=== PATIENT | male | born 1985 | race Caucasian/White ===

== ENCOUNTER → 2017-11-04 15:42 | Outpatient (CLI) | payer BC, SELFPAY | PROVIDERS: Family Provider Family Medicine; PCP Family Medicine; Visit Provider Family Medicine | DX: Z53.9 Procedure and treatment not carried out, unspecified reason (principal) | CPT/HCPCS: 87081 ==

== ENCOUNTER → 2017-11-05 14:08 | Outpatient (CLI) | payer BC, SELFPAY ==
[2017-11-05 18:57] LABS: M R Staph aureus DNA By PCR Negative (Negative); Probe Check PASS; Specimen Processing Control PASS
== END ==
PROVIDERS: Family Provider Family Medicine; PCP Family Medicine; Visit Provider Family Medicine
DX: Z20.818 Contact with and (suspected) exposure to other bacterial communicable diseases (principal)
CPT/HCPCS: 87641

== ENCOUNTER → 2018-02-14 10:03 | Outpatient (CLI) | payer BC, SELFPAY ==
--- NOTE | 2018-02-14 10:09 | RAD_ITS ---
STUDY: X-RAY CHEST REASON FOR EXAM: Male, 32 years old. Chest pain TECHNIQUE: Frontal and lateral views of the chest. COMPARISON: None. FINDINGS: The lungs are clear and expanded. There is no demonstrated pleural abnormality. Normal size heart. Normal mediastinum and sathya. Normal visualized pulmonary arteries. Normal visualized aortic arch and descending thoracic aorta. Normal visualized thoracic spine. Normal visualized ribs, clavicles, and shoulders. There is no demonstrated abnormality of the visualized soft tissue structures of the upper abdomen. RAD/Chest PA and Lateral IMPRESSION: Normal x-ray examination of the chest. Electronically Signed: Peter Mejia MD at 0:03 EST , Service support ,
[2018-02-14 12:25] LABS: Absolute Lymphocyte Count 2.15 X10^3/ul (0.83-4.51); Absolute Neutrophil Count 3.7 X10^3/uL (2.0-7.7); Basophil# 0.02 X10^3/uL; Basophil% 0.3 % (0-1); Eosinophil# 0.12 X10^3/uL; Eosinophils% 1.8 % (0-5); Hematocrit 46.4 % (40-54); Hemoglobin 15.9 g/dl (13.0-16.5); Lymphocyte # 2.15 X10^3/ul (4.0); Lymphocyte % 31.8 % (19-41); Mean Corp Hgb Conc 34.3 g/gl (32-36); Mean Corpuscular Hgb 30.6 pg (27.0-32.0); Mean Corpuscular Volume 89.4 fL (80-94); Mean Platelet Vol. 10.1 fl (6.2-12.0); Monocyte# 0.73 X10^3/uL; Monocyte% 10.8 % (0-10); Neutrophil # 3.72 X10^3/uL (2.7-7.7); Platelet Count 286 K/mm3 (150-450); RBC Distribution Width CV 12.1 % (11.6-14.6); RBC Distribution Width SD 39.5 fl (35.1-43.9); Red Blood Count 5.19 M/mm3 (4.6-6.2); White Blood Count 6.8 K/mm3 (4.4-11.0)
[2018-02-14 12:31] LABS: POSITIVE COUNT NO; POSITIVE DIFFERENTIAL NO; POSITIVE MORPHOLOGY NO
[2018-02-14 13:07] LABS: D-Dimer Quantitative (DVT/PE) < 0.27 FEU/ug/m (0.27-0.49)
== END ==
PROVIDERS: Family Provider Family Medicine; PCP Family Medicine; Referring Provider Family Medicine; Visit Provider Family Medicine
DX: R07.9 Chest pain, unspecified (principal)
CPT/HCPCS: 36415; 71046; 85025; 85379

== ENCOUNTER → 2018-03-06 15:34 | Outpatient (CLI) | payer BC, SELFPAY ==
[2016-11-16 17:30] VITALS: BMI 25.8
[2018-03-06 17:48] LABS: Color, Urine Yellow (Yellow); Glucose, Dipstick Normal (Normal); Ketone-Dipstick Negative (Negative); Leukocyte Esterase-Dipstick Negative /ul (Negative); Nitrite-Dipstick Negative (Negative); Occult Blood-Urine Negative /ul (Negative); Protein-Dipstick Negative (Negative); Urine Bilirubin Dipstick Negative (Negative); Urine Clarity Clear (Clear); Urine Urobilinogen Normal (Normal)
[2018-03-06 17:58] LABS: ALB/GLOB Ratio 1.2 RATIO (0.9-2.4); AST(SGOT) 34 U/L (15-37); Alanine Aminotransfer ALT/SGPT 61 U/L (16-61); Albumin, Serum 4.1 g/dL (3.2-5.0); Alkaline Phosphatase 96 U/L (45-117); Anion Gap 8 (5-15); BUN 16 mg/dL (7-18); Calcium,Total 8.8 mg/dL (8.5-10.1); Chloride 103 mmol/L (98-107); EST Glomerular Filtration Rate 93 mL/min (>60); Est Glom Filt Rate - Afr Amer 113 mL/min (>60); Globulin 3.3 g/dL (2.2-4.2); Glucose 83 mg/dL (74-106); Potassium 3.9 mmol/L (3.5-5.1); Protein, Total 7.4 g/dL (6.4-8.2); Sodium Level 140 mmol/L (136-145)
--- OUTSIDE RECORDS SUMMARY | 2018-05-01 21:59 | XMS RPT_ITS ---
:1985 Author Organization [facility] Care Team Providers Name Role Phone Jose L Zaid Attending Unavailable Zaid Domingo Primary Care Unavailable Zaid Domingo Attending Unavailable Zaid Domingo Primary Care Unavailable Zaid Domingo Attending Unavailable Zaid Domingo Referring Unavailable Zaid Domingo Primary Care Unavailable Patricia Garcia Attending Unavailable Patricia Garcia Referring Unavailable Zaid Domingo Primary Care Unavailable PROBLEMS PROBLEMS DATE TYPE CONDITION / CODE ATTENDING STATUS SOURCE 02/14/2018 Unknown R07.9 - Chest Zaid Domingo Active [facility] pain, unspecified Community / R07.9(ICD-10) Hospital Repository 11/05/2017 Unknown Z20.818 - Contact Jose L Zaid Active [place] with and Community (suspected) Hospital exposure to other Repository bacterial communicable diseases / Z20.818(ICD-10) PROCEDURES PROCEDURES No Procedure Records FoundRESULTS RESULTS URINALYSIS, ROUTINE Collected: 03/06/2018 Status: F Source: [place] (DIPSTICK) 3:39 PM [facility] REPOSITORY Order Comment: How was Urine Obtained? CLEAN CATCH TYPE CODE TESTS RESULT OUT OF RANGE REFERENCE UNITS LAB L400.3000 Yellow COLOR Normal Yellow LAB L400.3050 Clear Normal CLARITY Clear LAB L400.3200 Normal mg/dl Normal GLUCOSE, UR Normal LAB L400.3300 Negative mg/dL Normal BILIRUBIN URINE Negative LAB L400.3400 Negative mg/dl Normal KETONE UR Negative LAB L400.3465 1.002-1.030 Normal SP.GR. DIPSTX 1.020 LAB L400.3550 5.0 - 8.0 pH UR Normal 6.0 LAB L400.3600 Negative mg/dl PROT Normal DIPSTX Negative LAB L400.3700 Normal mg/dl Normal UROBILI Normal LAB L400.3750 Negative Normal NITRITE UR Negative LAB L400.3780 Negative /ul Normal OCCULT BLOOD-UR Negative LAB L400.3800 Negative /ul LEUK Normal ESTERASE Negative Performed By: #### L400.2010 #### [facility] [address] [place], [place], [address] COMPREHENSIVE METABOLIC Collected: 03/06/2018 Status: F Source: [place] PROFIL 3:39 PM [facility] REPOSITORY TYPE CODE TESTS RESULT OUT OF RANGE REFERENCE UNITS LAB L501.0100 74-106 mg/dL Normal GLU 83 Result Comment: Please note revised GLUCOSE reference range effective 2017. LAB L501.1000 7-18 mg/dL Normal BUN 16 LAB L501.1100 0.70-1.30 mg/dL Normal CREAT,SERUM 1.00 Result Comment: The validity of the calculated GFR AND GFRAA in patients over 70 years has not been determined. Clinical correlation is essential. LAB L501.1110 >60 mL/min Normal EST GFR 93 Result Comment: Non- GFR Calc LAB L501.1115 >60 mL/min Normal EST GFR - AA 113 Result Comment: GFR Calc LAB L501.1300 10-20 RATIO Normal BUN/CRE 16.0 LAB L501.1500 6.4-8.2 g/dL T Normal PROT 7.4 LAB L501.1800 3.2-5.0 g/dL Normal ALB 4.1 LAB L501.1950 2.2-4.2 g/dL Normal GLOB 3.3 LAB L501.2000 0.9-2.4 RATIO Normal A/G 1.2 LAB L501.2200 8.5-10.1 mg/dL CA Normal 8.8 LAB L501.4100 15-37 U/L Normal AST 34 LAB L501.4305 45-117 U/L Normal ALK P 96 LAB L501.4405 16-61 U/L Normal ALT 61 LAB L501.4600 0.20-1.00 mg/dL T Normal BILI 0.30 LAB L501.5300 136-145 mmol/L NA Normal 140 LAB L501.5600 3.5-5.1 mmol/L K Normal 3.9 LAB L501.5900 98-107 mmol/L CL Normal 103 LAB L501.6100 21.0-32.0 mmol/L Normal CO2 29.0 LAB L501.6200 5-15 Normal GAP 8 Performed By: #### L500.4050 #### [facility] [address] [place], [address] CBC W/DIFF, AUTOMATED Collected: 02/14/2018 Status: F Source: [place] 10:10 AM [facility] REPOSITORY TYPE CODE TESTS RESULT OUT OF RANGE REFERENCE UNITS LAB L100.1000 4.4-11.0 K/mm3 Normal WBC 6.8 LAB L100.1200 4.6-6.2 M/mm3 Normal RBC 5.19 LAB L100.1300 13.0-16.5 g/dl Normal HGB 15.9 LAB L100.1400 40-54 % Normal HCT 46.4 LAB L100.1500 80-94 fL Normal MCV 89.4 LAB L100.1600 27.0-32.0 pg Normal MCH 30.6 LAB L100.1700 32-36 g/gl Normal MCHC 34.3 LAB L100.1810 11.6-14.6 % Normal RDW CV 12.1 LAB L100.1820 35.1-43.9 fl Normal RDW SD 39.5 LAB L100.1900 150-450 K/mm3 Normal PLT 286 LAB L100.2000 6.2-12.0 fl Normal MPV 10.1 LAB L100.2100 47-70 % Normal NEUT% 55.0 LAB L100.2200 19-41 % Normal LY% 31.8 LAB L100.2300 0-10 % High MONO% 10.8 LAB L100.2400 0-5 % Normal EO% 1.8 LAB L100.2500 0-1 % Normal BASO% 0.3 LAB L100.2550 0.0-0.9 % Normal IM GRAN % 0.300 Result Comment: IG% - Immature Granulocytes (promyelocytes, myelocytes and metamyelocytes) > 1% indicates that a LEFT SHIFT is Present. LAB L100.2620 2.0-7.7 X10 3/uL Normal Absolute Neut 3.7 LAB L100.2720 0.83-4.51 X10 3/ul Normal Absolute Lymph 2.15 Performed By: #### L100.0100 #### [facility] [address] [facility] [place], [place], [address] D-DIMER QUANTITATIVE Collected: 02/14/2018 Status: F Source: [place] (DVT/PE) 10:10 AM [facility] REPOSITORY TYPE CODE TESTS RESULT OUT OF RANGE REFERENCE UNITS LAB L300.8000 0.27-0.49 FEU/ug/m Low D-DIMER < 0.27 QUANT Result Comment: NORMAL D-Dimer level (<0.50) indicates no DVT or PE. Performed By: #### L300.8000 #### [facility] [address] [place], [address] CHEST PA AND LATERAL Observed: 02/14/2018 Status: F Source: [place] 10:09 AM [facility] REPOSITORY [facility] [address] [place] [address] Chest PA and Lateral MR#: [id number] Acct: [id number] Name: DAROÍ TRACY Rep #: [id number] : 1985 M 32 From: Peter Mejia MD PCP: Zaid Domingo DO Status: REG CLI Study: Chest PA and Lateral Date of Exam: 02/14/18 Exam# [id number] Ordering Dr: Zaid Domingo DO STUDY: X-RAY CHEST REASON FOR EXAM: Male, 32 years old. Chest pain TECHNIQUE: Frontal and lateral views of the chest. COMPARISON: None. FINDINGS: The lungs are clear and expanded. There is no demonstrated pleural abnormality. Normal size heart. Normal mediastinum and sathya. Normal visualized pulmonary arteries. Normal visualized aortic arch and descending thoracic aorta. Normal visualized thoracic spine. Normal visualized ribs, clavicles, and shoulders. There is no demonstrated abnormality of the visualized soft tissue structures of the upper abdomen. RAD/Chest PA and Lateral IMPRESSION: Normal x-ray examination of the chest. Electronically Signed: Peter Mejia MD at 0:03 EST , Service support , CC: Zaid Domingo DO Database Administration Manager: Signed Flores Haridng [employer] Collected: 11/05/2017 Status: F Source: [place] DNA BY PCR 8:00 AM [facility] REPOSITORY Order Comment: PT. COLLECTED SAMPLE AT HOME AT 0800 Source: NASAL SWAB TYPE CODE TESTS RESULT OUT OF RANGE REFERENCE UNITS LAB L8200.1100 Negative Normal MRSA Negative RESULT Performed By: #### L8200.1000 #### [facility] [place], [address] ALLERGIES ALLERGIES DATE TYPE / CODE NAME / CODE REACTION SEVERITY SOURCE 11/16/2016 Drug codeine/F006 Vomiting Unknown [facility] Allergy/4160 514424([place] [address](SNOMED M) Repository CT) 11/16/2016 Drug acetaminophe Vomiting Unknown [place] [facility] Allergy/4160 n/[id number] [place] [address](SNOMED (RXNORM) Repository CT) 11/16/2016 Drug naproxen/F00 Other Unknown [facility] Allergy/4160 [id number]([place] [address](SNOMED RM) Repository CT) ENCOUNTERS ENCOUNTERS ADMIT/DISCHARGE ACCOUNT ADMITTING ENCOUNTER LOCATION SOURCE NUMBER CLASS 03/06/2018 [id number] [facility] [place] [facility] ing:MTLAB Repository 02/14/2018 [id number] [facility] [place] [facility] ing:MTLAB Repository 11/05/2017 [id number] Amb[facility] [place] [facility] ing:BFHLAB Repository 11/04/2017 [id number] Ambulatory [facility] [place] [facility] ing:BFHLAB Repository PAYERS PAYERS ENCOUNTER GUARANTOR PAYER SUBSCRIBER SOURCE 03/06/2018 DARÍO Harding Primary RICHA A [facility] [id number] Insurance:ANTHEMPolic GRESSERDOB: Community LIBERTY y [place]: [id number] [id number] Repository [address]Ozu: (330) Date:3556-16-19EL [phone] () [address] [place] [address] [place] [address]HH: 03/06/2018 Secondary NOT GIVENUNK [facility] Insurance:SELF PAY [facility] Number: Effective Repository Date:2018-03-06 02/14/2018 Darío Harding Primary RICHA A [facility] [id number] Insurance:ANTHEMPolic GRESSERDOB: Community [place]: [id number] [id number] Repository [address]Gzi: (330) Date:2785-11-18LP [phone] () [id number] [address]QP: 02/14/2018 Secondary NOT GIVENUNK [facility] Insurance:SELF PAY [facility] Number: Effective Repository Date:2018-02-14 11/05/2017 Darío Harding Primary RICHA A [facility] [id number] Insurance:ANTHEMPolic GRESSERUNK [facility] Number: [place], [place] [id number] Repository [address]Nwn: (330) Date:6441-49-84YJ [phone] () [id number], [place] [address]GD: 11/05/2017 Secondary NOT GIVENUNK [facility] Insurance:SELF PAY [facility] Effective Repository Date:2017-11-05 11/04/2017 Darío Harding Primary RICHA A [facility] [id number] Insurance:ANTHEMPolic YANCI [facility] [place] Number: [place], [place] [id number] Repository 10456Pst: 330) Date:6359-23-02HW [phone] () [id number], [place] [address]OS: 11/04/2017 Secondary NOT GIVENUNK [facility] Insurance:SELF PAY [facility] Number: Effective Repository Date:2017-11-04
== END ==
PROVIDERS: Family Provider Family Medicine; PCP Family Medicine; Referring Provider Ophthalmology; Visit Provider Ophthalmology
DX: H35.89 Other specified retinal disorders (principal)
CPT/HCPCS: 36415; 80053; 81002

== ENCOUNTER → 2018-10-27 | Outpatient (CLI) | payer BC, SELFPAY ==
[2018-10-27 15:43] LABS: Erythrocyte Sedimentation Rate 7 mm/hr (0-15)
[2018-10-27 16:05] LABS: CRP < 2.90 mg/L (0.0-3.0); T4 Free Direct 1.31 ng/dL (0.76-1.46); Thyroid Stim Hormone (TSH) 1.06 uIU/mL (0.358-3.74)
== END | disposition home or self-care (01) ==
LOC: BFHLAB 11:57
PROVIDERS: Family Provider Family Medicine; PCP Family Medicine; Visit Provider Family Medicine
DX: R10.9 Unspecified abdominal pain (principal); R25.1 Tremor, unspecified; F41.9 Anxiety disorder, unspecified
CPT/HCPCS: 36415; 84439; 84443; 85652; 86140

== ENCOUNTER → 2019-05-08 | Outpatient (CLI) | payer BC, SELFPAY ==
[2019-03-13 12:46] VITALS: BMI 25.8
--- NOTE | 2019-05-08 07:04 | ECHOD_ITS ---
Reason For Study: Chest Pain, Murmur Procedure This was a 2D Doppler, Color Flow transthoracic echocardiogram. Patient had a hard time maintaining steady breathing due to left shoulder pain. Exam performed in department. Left Ventricle Normal LV size. Left ventricular systolic function is normal. The estimated ejection fraction is 65 %. No evidence for diastolic dysfunction. No regional wall motion abnormalities noted. Right Ventricle Normal RV size. Normal systolic function. Atria Normal left atrium. Normal right atrium. No doppler evidence for ASD. Mitral Valve There is no mitral annular calcification. Mild mitral valve prolapse. Trivial mitral valve insufficiency. Tricuspid Valve Normal tricuspid valve. Trivial tricuspid valve insufficiency. Aortic Valve Trisinus/trileaflet aortic valve. Normal aortic valve. Pulmonic Valve The pulmonic valve is not well visualized. Trivial pulmonic valve insufficiency. Great Vessels Normal sized aortic root. Pericardium/Pleural No pericardial effusion. MMode/2D Measurements & Calculations LVIDd: 4.6 cm IVSd: 0.84 cm Ao root diam: 3.2 cm LVIDs: 3.0 cm LVPWd: 0.71 cm LA dimension: 2.9 cm FS: 33.3 % LAV(MOD-bp): 29.1 ml LA A4 area: 13.4 cm2 RA A4 area: 11.7 cm2 LAV(MOD-bp) Indexed: 15.6 ml/m2 LAV(MOD-sp2): 23.1 ml LAV(MOD-sp4): 32.9 ml Time Measurements MV dec time: 0.20 sec Doppler Measurements & Calculations MV E max josé: 65.2 cm/sec Lat Peak E' José: 11.0 cm/sec Med Peak E' José: 10.3 cm/sec MV A max josé: 51.2 cm/sec E/E' lat: 5.9 E/E' med: 6.3 MV E/A: 1.3 MV V2 max: 70.1 cm/sec MV P1/2t max josé: 70.1 cm/sec Ao V2 max: 104.8 cm/sec MV max P.0 mmHg MV P1/2t: 64.0 msec Ao max P.4 mmHg MV V2 mean: 40.1 cm/sec MV dec slope: 320.6 cm/sec2 MV mean P.74 mmHg MVA(P1/2t): 3.4 cm2 MV V2 VTI: 20.0 cm LV V1 max: 85.4 cm/sec PA V2 max: 102.1 cm/sec LV V1 max P.9 mmHg Interpretation Summary Left ventricular systolic function is normal. The estimated ejection fraction is 65 %. Mild mitral valve prolapse. Trivial mitral valve insufficiency. Trivial tricuspid valve insufficiency. Trivial pulmonic valve insufficiency. No evidence for diastolic dysfunction. Ordering Physician: Zaid Domingo Referring Physician: Zaid Domingo Performed By: Brett Simpson RCS
--- NOTE | 2019-05-08 11:36 | PFT ---
INTRODUCTION: The patient is a 33-year-old male that presents for pulmonary function studies secondary to a diagnosis of chronic cough. Respiratory therapy reports good patient effort. Bronchodilators were used during testing. INTERPRETATION: Forced expiration spirometry demonstrates no evidence of a large airways obstructive ventilatory defect. There was no significant response to aerosolized bronchodilators, based upon strict ATS criteria. Spirograms are of good quality and plateau normally. The respiratory flow volume loop appears normal. Body plethysmography was performed and reveals lung volumes to be within normal limits. Diffusing capacity by single breath CO is also within normal limits as well. IMPRESSION: Normal pulmonary function studies.
== END | disposition home or self-care (01) ==
PROVIDERS: PCP Family Medicine; Referring Provider Family Medicine; Visit Provider Family Medicine
DX: R07.9 Chest pain, unspecified (principal); R05 Cough; R01.1 Cardiac murmur, unspecified
CPT/HCPCS: 93306; 94060; 94726; 94729

== ENCOUNTER → 2019-09-11 | Outpatient (CLI) | payer BC, SELFPAY ==
[2019-03-13 12:46] VITALS: BMI 25.8
--- NOTE | 2019-09-10 08:34 | EKG12_ITS ---
Test Reason : PREOP Blood Pressure : / mmHG Vent. Rate : 062 BPM Atrial Rate : 062 BPM P-R Int : 116 ms QRS Dur : 084 ms QT Int : 384 ms P-R-T Axes : 069 077 048 degrees QTc Int : 389 ms Normal sinus rhythm with sinus arrhythmia Normal ECG Confirmed by SAMMY PINZON, JONNY ([id number]), magazine editor CORNELIA CAMPOS ([id number]) on 09/11/2019 9:15:16 AM Referred By: Italia Orlando Confirmed By:JONNY CHRISTIANSON MD
[2019-09-10 09:06] LABS: Absolute Lymphocyte Count 2.14 X10^3/uL (0.83-4.51); Absolute Neutrophil Count 7.3 X10^3/uL (2.0-7.7); Basophil# 0.03 X10^3/uL; Basophil% 0.3 % (0-1); Eosinophil# 0.12 X10^3/uL; Eosinophils% 1.2 % (0-5); Hematocrit 45.2 % (40-54); Hemoglobin 15.4 g/dL (13.0-16.5); Lymphocyte # 2.14 X10^3/ul (4.0); Lymphocyte % 20.7 % (19-41); Mean Corp Hgb Conc 34.1 g/dL (32-36); Mean Corpuscular Hgb 30.6 pg (27.0-32.0); Mean Corpuscular Volume 89.7 fL (80-94); Mean Platelet Vol. 9.8 fl (6.2-12.0); Monocyte% 6.8 % (0-10); NRBC Flagged by Analyzer 0 % (0-5); Neutrophil % 70.6 % (47-70); Platelet Count 295 K/mm3 (150-450); RBC Distribution Width CV 11.6 % (11.6-14.6); RBC Distribution Width SD 37.6 fl (35.1-43.9); Red Blood Count 5.04 M/mm3 (4.6-6.2); White Blood Count 10.3 K/mm3 (4.4-11.0)
[2019-09-10 09:31] LABS: Anion Gap 7 (5-15); BUN 15 mg/dL (7-18); BUN/Creat Ratio 14.7 RATIO (10-20); Calcium,Total 8.8 mg/dL (8.5-10.1); Chloride 103 mmol/L (98-107); Creatinine, Serum 1.02 mg/dL (0.70-1.30); EST Glomerular Filtration Rate 90 mL/min (>60); Est Glom Filt Rate - Afr Amer 109 mL/min (>60); Glucose 132 mg/dL (74-106); Potassium 3.8 mmol/L (3.5-5.1); Sodium Level 138 mmol/L (136-145)
--- OUTSIDE RECORDS SUMMARY | 2020-01-24 08:33 | XMS RPT_ITS | CCD ---
:1985 External Reference #:[id number] Author Organization [facility] Care Team Providers Name Role Phone Valentino Cates Unavailable Now Nurse Unavailable Unavailable Casey ROMERO, N Unavailable Unavailable Allergies Reported Allergen Reaction(s) Severity Date of Onset Location acetaminophen / shaky, heart Critical, 11-23-2016 [facility] Now Clin ic codeine palpitations Critical (35668) naproxen shaky, heart Critical, 11-23-2016 [facility] Now Clinic palpitations Critical (38180) Medications Medication Name Sig Date Prescriber Location ibuprofen IBUPROFEN CAPS as 11-23-2016 [facility] Now Cl inic (90711) directed IBUPROFEN CAPS [phone] Kaya Peña [employer] WORKER IBUPROFEN CAPS as directed IBUPROFEN 11-23-2016 [facility] Now Clinic (80856) CAPS [phone] Kaya Yvonne Casey FAMILY DAY CARE WORKER IBUPROFEN CAPS as directed IBUPROFEN 11-23-2016 [facility] Now Clinic (83575) CAPS [phone] Kaya Caroall FAMILY [employer]ARE WORKER Problems Category Problem Name Status Date Location Fracture of upper Fracture of unspecified Completed 11-23-2016 [facility] Now Clinic limb phalanx of left middle (4469 1) finger, initial encounter for closed fracture Results Result Name Value Range Unit Interpretation Flag Date Location office visit: occ med f/u l middle finge r fracture on 2016-12-03 Documentation of Done Invalid 12-03-2016 [facility] Now current medications Interpretation Code 12-03-2016 Clinic (procedure) (38154) Fall risk No Invalid 12-03-2016 [facility] Now assessment Interpretation Code 7 Clinic (85731) Tobacco use CPHS Current every Invalid [facility] Now day smoker Interpretation Code 7 Clinic (31158) office visit: bwc: l 3rd digit tuft tory cates on 2016-11-23 Documentation of Done Invalid 11-23-2016 - [facility] Now current medications Interpretation Code 11-23-2016 Clinic (procedure) (50226) Fall risk No Invalid 11-23-2016 - [facility] Now assessment Interpretation Code 7 Clinic (78606) Smoking cessation Not indicated Invalid 11-24-19 17 - [facility] Now education Interpretation Code 11-23-2016 Clinic (procedure) (99618) Tobacco use CPHS Current every Invalid 7 - [facility] Now day smoker Interpretation Code 7 Clinic (04519) Vital Signs Vital Sign Description Value / Unit Date Location The following section is limited to 5 en tries per type and includes entries from the following time range: 20161123 - 20161107 8. BMI (Body Mass Index) 25.72 kg/m2 12-03-2016 - 12-03-2016 [facility] Now [facility] (27544) BMI (Body Mass Index) 25.66 kg/m2 11-23-2016 - 11-23-2016 [facility] Now [facility] (70878) Body Temperature 98.1 [degF] 12-03-2016 - 12-03-2016 [facility] Now [facility] (45873) Body Temperature 98 [degF] 11-23-2016 - 11-23-2016 [facility] Now Clinic (67175) BP Diastolic 64 mm[Hg] 12-03-2016 - 12-03-2016 [facility] Now [facility] (07916) BP Diastolic 62 mm[Hg] 11-23-2016 - 11-23-2016 [facility] Now Clinic (40577) BP Systolic 110 mm[Hg] 12-03-2016 - 12-03-2016 [facility] Now [facility] (22261) BP Systolic 104 mm[Hg] 11-23-2016 - 11-23-2016 [facility] Now Clinic (11823) Height 172.72 cm 12-03-2016 - 12-03-2016 [facility] Now Clinic (71738) Height 172.72 cm 11-23-2016 - 11-23-2016 [facility] Now Clinic (70579) Pulse (Heart Rate) 96 /min 12-03-2016 - 12-03-2016 [facility] N ow Clinic (63251) Pulse (Heart Rate) 68 /min 11-23-2016 - 11-23-2016 [facility] N ow Clinic (36500) Respiratory Rate 13 /min 12-03-2016 - 12-03-2016 [facility] Now Clinic (56297) Respiratory Rate 14 /min 11-23-2016 - 11-23-2016 [facility] Now [facility] (68540) Weight 76.75 kg 12-03-2016 - 12-03-2016 [facility] Now [facility] (27250) Weight 76.57 kg 11-23-2016 - 11-23-2016 [facility] Now [facility] (15364) Plan of Treatment Plan Description Date Location Appointment Appointment 12-03-2016 - 12-03-2016 [facility] (82502) X-Ray, Fingers X-Ray, Fingers 12-03-2016 - 12-03-2016 [facility] Now [facility] (50014) Appointment Appointment 11-23-2016 - 11-23-2016 [facility] (26195) X-Ray, Fingers X-Ray, Fingers 11-23-2016 - 11-23-2016 [facility] (17569) Additional Source Comments FOR RECORDS PERTAINING TO PATIENTS WHO ARE OR HAVE BEEN ENROLLED IN A CHEMICAL DEPENDENCY/SUBSTANCE ABUSE PROGRAM, SOME INFORMATION MAY BE OMITTED. This clinical summary was aggregated from multiple sources. Caution should be exercised in using it in the provision of clinical care. This summary normalizes information from multiple sources, and as a consequence, information in this document may materially changethe coding, format and clinical context of patient data. In addition, data may be omittedin some cases. CLINICAL DECISIONS SHOULD BE BASED ON THE PRIMARY CLINICAL RECORDS. [facility] provides no warranty or guarantee of the accuracy or completeness of information in this document.
== END | disposition home or self-care (01) ==
LOC: LABSPEC 12:30
PROVIDERS: PCP Family Medicine; Referring Provider Registered Nurse; Visit Provider Registered Nurse
DX: Z01.818 Encounter for other preprocedural examination (principal); Z11.59 Encounter for screening for other viral diseases
CPT/HCPCS: 36415; 80048; 85025; 87635; 93005; G2023; U0003

== ENCOUNTER → 2019-10-15 | Outpatient (CLI) | payer BC, SELFPAY ==
[2019-03-13 12:46] VITALS: BMI 25.8
[2019-10-15 13:53] LABS: Rheumatoid Factor < 10.0 IU/mL (<15)
[2019-10-16 21:13] LABS: ANTINUCLEAR ANTIBODIES DIRECT Negative (Negative)
[2019-10-17 08:31] LABS: CCP IgG Antibodies 3 units (0-19)
== END | disposition home or self-care (01) ==
LOC: BFHLAB 10:39
PROVIDERS: PCP Family Medicine; Visit Provider Family Medicine
DX: M13.0 Polyarthritis, unspecified (principal)
CPT/HCPCS: 36415; 86038; 86200; 86225; 86235; 86431

== ENCOUNTER → 2020-04-14 | Outpatient (CLI) | payer BC, SELFPAY ==
[2019-03-13 12:46] VITALS: BMI 25.8
== END | disposition home or self-care (01) ==
PROVIDERS: PCP Family Medicine; Referring Provider Family Medicine; Visit Provider Family Medicine
DX: R05 Cough (principal); R52 Pain, unspecified; R68.83 Chills (without fever)
CPT/HCPCS: 87635; U0005; U0003

== ENCOUNTER → 2022-08-02 | Outpatient (CLI) | payer BC, SELFPAY ==
[2022-08-04 13:07] LABS: Lead, Blood Adult 16+yrs < 1.0 ug/dL (0.0-3.4)
== END | disposition home or self-care (01) ==
LOC: BFHLAB 16:14
PROVIDERS: PCP Family Medicine; Referring Provider Family Medicine; Visit Provider Family Medicine
DX: Z77.011 Contact with and (suspected) exposure to lead (principal)
CPT/HCPCS: 36415; 83655

== ENCOUNTER → 2022-10-24 | Outpatient (CLI) | payer BC, SELFPAY ==
[2022-10-24 12:38] LABS: Erythrocyte Sedimentation Rate < 1 mm/hr (0-20)
[2022-10-24 12:41] LABS: Absolute Lymphocyte Count 2.53 X10^3/uL (0.83-4.51); Absolute Neutrophil Count 2.9 X10^3/uL (2.0-7.7); Basophil# 0.02 X10^3/uL; Basophil% 0.3 % (0-1); Eosinophils% 1.7 % (0-5); Hematocrit 46.8 % (40-54); Hemoglobin 15.8 g/dL (13.0-16.5); Lymphocyte # 2.53 X10^3/ul (0.83-4.51); Mean Corp Hgb Conc 33.8 g/dL (32-36); Mean Corpuscular Hgb 30.9 pg (27.0-32.0); Mean Corpuscular Volume 91.6 fL (80-94); Mean Platelet Vol. 9.8 fl (6.2-12.0); Monocyte# 0.51 X10^3/uL; Monocyte% 8.5 % (0-10); NRBC Flagged by Analyzer 0 % (0-5); Neutrophil # 2.86 X10^3/uL (2.7-7.7); Neutrophil % 47.3 % (47-70); Platelet Count 303 K/mm3 (150-450); RBC Distribution Width CV 11.9 % (11.6-14.6); Red Blood Count 5.11 M/mm3 (4.6-6.2)
[2022-10-24 12:56] LABS: Vitamin B12 429 pg/mL (211-911)
[2022-10-24 13:10] LABS: ALB/GLOB Ratio 1.2 RATIO (0.9-2.4); AST(SGOT) 17 U/L (15-37); Alanine Aminotransfer ALT/SGPT 26 U/L (16-61); Albumin, Serum 4.1 g/dL (3.2-5.0); Alkaline Phosphatase 91 U/L (45-117); Anion Gap 4 (5-15); BUN 11 mg/dL (7-18); BUN/Creat Ratio 11.1 RATIO (10-20); CRP < 2.90 mg/L (0.0-3.0); Calcium,Total 8.9 mg/dL (8.5-10.1); Chloride 103 mmol/L (98-107); Creatinine, Serum 0.99 mg/dL (0.70-1.30); EST Glomerular Filtration Rate 92 mL/min (>60); Est Glom Filt Rate - Afr Amer 111 mL/min (>60); Globulin 3.3 g/dL (2.2-4.2); Glucose 90 mg/dL (74-106); Potassium 4.1 mmol/L (3.5-5.1); Protein, Total 7.4 g/dL (6.4-8.2); Rheumatoid Factor < 10.0 IU/mL (<15); Sodium Level 137 mmol/L (136-145); Thyroid Stim Hormone (TSH) 0.76 uIU/mL (0.358-3.74)
[2022-10-25 12:09] LABS: CCP IgG Antibodies 4 units (0-19)
[2022-10-25 14:10] LABS: ANTINUCLEAR ANTIBODIES DIRECT Negative (Negative)
== END | disposition home or self-care (01) ==
LOC: BFHLAB 08:49
PROVIDERS: PCP Family Medicine; Referring Provider Family Medicine; Visit Provider Family Medicine
DX: M25.50 Pain in unspecified joint (principal); R53.83 Other fatigue; R59.1 Generalized enlarged lymph nodes
CPT/HCPCS: 36415; 80053; 82607; 84443; 85025; 85652; 86038; 86140; 86200; 86225; 86235; 86431

== ENCOUNTER → 2022-10-27 | Outpatient (CLI) | payer BC, SELFPAY ==
--- NOTE | 2022-10-27 10:44 | US_ITS ---
INDICATION: RIGHT SIDED NECK PAIN EXAMINATION: Ultrasound US Head/Neck Soft Tissue TECHNIQUE: Flannery scale and color doppler imaging was performed of the thyroid gland. COMPARISON: No prior examinations are available for comparison. FINDINGS: Few lymph nodes are seen on the right side of the neck, the largest 3 nodes measures 1.6, 1.5 and 1.3 cm. No other cystic or solid masses are seen. US/Head/Neck Soft Tissue IMPRESSION: Few nodes on the right side of the neck which could be reactive. Electronically Signed: Alber Camilo MD at 15:36 EDT ,
== END | disposition home or self-care (01) ==
PROVIDERS: PCP Family Medicine; Referring Provider Family Medicine; Visit Provider Family Medicine
DX: R59.0 Localized enlarged lymph nodes (principal)
CPT/HCPCS: 76536

== ENCOUNTER → 2022-10-30 | Outpatient (CLI) | payer BC, SELFPAY ==
--- NOTE | 2022-10-30 13:13 | MRI_ITS ---
INDICATION: R/O MS VISUAL CHANGES IMPAIRED COORDINATION EXAMINATION: MRI - MR Brain WO/W Contrast TECHNIQUE: MRI examination of brain obtained with standard protocol including multiplanar multiecho imaging. Pre and Postcontrast imaging obtained. IV Contrast Dosage and Agent: 15 mL Clariscan IV COMPARISON: None. FINDINGS: HEMISPHERES, CEREBELLUM AND BRAINSTEM: 1. The cerebral parenchyma, ventricular system, subarachnoid spaces have normal configuration and density. There is a normal gyral pattern. There is normal mcarthur/white differentiation. No midline shift.. 2. Hemispheric white matter has normal appearance with the exception of a single focal area of subtle ependymal FLAIR signal hyperintensity associated with the atrium of the RIGHT lateral ventricle. No other areas of white matter signal abnormality noted. No areas noted within the juxtacortical regions, corpus callosum, thalamus, basal ganglia or brainstem. 3. No intraparenchymal mass, hemorrhage, or acute territorial infarct. 4. The cerebellum, brainstem, basilar and suprasellar cisterns have normal appearance. No Chiari malformation. PITUITARY: Infundibulum and pituitary have normal configuration. Midline structures appear normal. CSF SPACES: Appropriate for age. No hydrocephalus. Basal cisterns are patent. VESSELS: 1. There are normal flow voids noted in the great vessels at the skull base ORBITS AND PARANASAL SINUSES: 1. Both globes, extraocular muscles, optic nerves and retrobulbar fat appear unremarkable. 2. Paranasal sinuses are clear. BONY ELEMENTS: Bony elements of the cranial vault, facial skeleton and skull base have normal appearance. SCALP AND SOFT TISSUES: Normal appearance of the soft tissues of the scalp and the visualized face OTHER: None MRI/Brain W/WO Contrast IMPRESSION: 1. No intracranial mass, hemorrhage, or acute territorial infarct. No areas of abnormal contrast enhancement. 2. Focal area of signal hyperintensity on FLAIR imaging and T2 within the subependymoma white matter at the trigone of the RIGHT lateral ventricle. No other areas of white matter signal abnormality. This does not meet imaging criteria for MS, however early demyelinating processes are a consideration. Consider short-term follow-up to assess stability. 3. No radiographically significant sinus disease. Electronically Signed: Phil Moore MD at 23:37 EDT ,
== END | disposition home or self-care (01) ==
PROVIDERS: PCP Family Medicine; Referring Provider Family Medicine; Visit Provider Family Medicine
DX: F09 Unspecified mental disorder due to known physiological condition (principal); R27.8 Other lack of coordination; H53.9 Unspecified visual disturbance
CPT/HCPCS: 70553; A9575

== ENCOUNTER → 2023-03-08 | Outpatient (CLI) | payer BC, SELFPAY ==
[2023-03-15 00:07] LABS: Lyme IgG P18 Ab Absent (.); Lyme IgG P23 Ab Absent (.); Lyme IgG P28 Ab Absent (.); Lyme IgG P30 Ab Absent (.); Lyme IgG P39 Ab Absent (.); Lyme IgG P41 Ab Absent (.); Lyme IgG P45 Ab Absent (.); Lyme IgG P58 Ab Absent (.); Lyme IgG P66 Ab Absent (.); Lyme IgG P93 Ab Absent (.); Lyme IgG WB Interpretation Negative (.); Lyme IgM P23 Ab Absent (.); Lyme IgM P39 Ab Absent (.); Lyme IgM P41 Ab Absent (.); Lyme IgM WB Interpretation Negative (.)
== END | disposition home or self-care (01) ==
LOC: MTLAB 13:10
PROVIDERS: PCP Family Medicine; Referring Provider Family Medicine; Visit Provider Family Medicine
DX: R59.0 Localized enlarged lymph nodes (principal); M13.0 Polyarthritis, unspecified
CPT/HCPCS: 36415; 86617

== ENCOUNTER → 2023-05-30 | Outpatient (CLI) | payer BC, SELFPAY ==
--- NOTE | 2023-05-30 06:38 | MRI_ITS ---
STUDY: MRI BRAIN WITH AND WITHOUT CONTRAST REASON FOR EXAM: Male, 37 years old. dyequilibruim; abnormal MRI (R trigone) TECHNIQUE: Standardized multiplanar fat and water weighted pulse sequences were obtained. IV 15ml clariscan was administered for the contrast portion of the examination. COMPARISON: October 30, 2022 FINDINGS: Normal size of the ventricles and extra-axial spaces for the patient''s age. Solitary nonspecific periventricular white matter lesion in the right parietal lobe contiguous with the trigone of the right lateral ventricle without mass effect or restricted diffusion. . Normal bilateral basal ganglia. Normal thalami. There is no extra-axial fluid accumulation. Normal flow voids within the major intracranial circulation suggesting patency by spin echo criteria. Normal venous enhancement. There is no enhancing intra-axial or extra-axial abnormality. Normal sella turcica, pituitary gland, infundibular stalk, optic chiasm and hypothalamus. Normal tectal plate and pineal gland. Normal midbrain, des and medulla. Normal cerebellum. Normal basal cisterns. Normal bilateral temporal bones. Normal bilateral internal auditory canals. No demonstrated orbital abnormality, within the constraints of a routine brain study. Normal visualized paranasal sinuses. Normal calvarium and skull base. Normal visualized soft tissue structures. Normal visualized upper cervical spine. Findings are not changed since prior exam MRI/Brain W/WO Contrast IMPRESSION: Nonspecific white matter lesion in the right parietal lobe of indeterminate etiology or clinical significance. Cannot definitively exclude demyelinating plaque. No significant white matter disease or evidence for acute infarct. No enhancing lesions following contrast administration No significant change since prior exam Electronically Signed: Rome Cadet MD at 16:27 EST Reading Location ID and State: [facility] / [place] Tel , Service support ,
--- OUTSIDE RECORDS SUMMARY | 2023-05-30 06:41 | XMS RPT_ITS | CCD ---
Author Name Unknown Address [address] [place] [address] Organization [facility] Care Team Providers Care Appeals Nurse Name Role Phone Michael Cates Unavailable Now Nurse Unavailable Unavailable Kaya Peña LPN Unavailable Unavailab le Unavailable Primary Care Provider Unavailabl e Allergies Allergy Classification Reported Allergen(s) Allergy Type Date of Onset Reaction(s) Facility (3 sources) acetaminophen / codeine drug allergy 7 shaky, heart palpitations [facility] Work Phone: (3 sources) naproxen drug allergy 7 shaky, heart palpitations [facility] Work Phone: (1 source) Codeine Drug Allergy 1 GI Upset [facility] Work Phone: (1 source) Naproxen Drug Allergy 1 Other: See Comments [facility] Work Phone: Medications Completed/Discontinued Medications Medication Drug Class(es) Dates Sig (Normalized) Sig (Original) dextromethorphan hydrobromide 3 mg/ml / promethazine hydrochloride 1.25 mg/ml oral solution (1 source) Phenothiazine, Uncompetitive N-kwhnug-B-aspartat e Receptor Antagonist, Sigma-1 Agonist Start: 07-29-2015 take 5 mL by mouth every six hours as needed Promethazine-DM (PHENERGAN-DM) 6.25-15 mg/5 mL syrup Take 5 mL by mouth four times daily as needed. 120 mL 0 07/29/2015 Active Problems Problem Classification Problem Date Documented Da te Episodic/Chronic Fracture of upper limb (3 sources) Fracture of unspecified phalanx of left middle finger, initial encounter for closed fracture; Translations: [Fracture of unspecified phalanx of left middle finger, initial encounter for closed fracture] Onset: 11-23-2016 11-23-2016 Episodic Results Test Name Value Interpretation Reference Range Facil ity Vital Signs Date Time Vital Sign Value Performing Clinician Randy powell 12-03-2016 15:59-0400 BMI (Body Mass Index) 25.72 kg/m2 [facility] Work Phone: 12-03-2016 15:59-0400 Body Temperature 98.1 [degF] [facility] Work Phone: 12-03-2016 15:59-0400 BP Diastolic 64 mm[Hg] [facility] Work Phone: 12-03-2016 15:59-0400 BP Systolic 110 mm[Hg] [facility] Work Phone: 12-03-2016 15:59-0400 Height 172.72 cm [facility] Work Phone: 12-03-2016 15:59-0400 Pulse (Heart Rate) 96 /min [facility] Work Phone: 12-03-2016 15:59-0400 Respiratory Rate 13 /min [facility] Work Phone: 12-03-2016 15:59-0400 Weight 76.75 kg [facility] Work Phone: 11-23-2016 15:00-0400 BMI (Body Mass Index) 25.66 kg/m2 Kaya Peña LPN [facility] Work Phone: 11-23-2016 15:00-0400 Body Temperature 98 [degF] Kaya Peña LPN [facility] Work Phone: 11-23-2016 15:00-0400 BP Diastolic 62 mm[Hg] Kaya Peña LPN [facility] Work Phone: 11-23-2016 15:00-0400 BP Systolic 104 mm[Hg] Kaya Peña LPN [facility] Work Phone: 11-23-2016 15:00-0400 Height 172.72 cm Kaya Peña LPN [facility] Work Phone: 11-23-2016 15:00-0400 Pulse (Heart Rate) 68 /min Kaya Peña LPN [facility] Work Phone: 11-23-2016 15:00-0400 Respiratory Rate 14 /min Kaya Peña [facility] Work Phone: 11-23-2016 15:00-0400 Weight 76.57 kg Kaya Peña [employer] PRESSER [facility] Work Phone: Encounters Encounter Date Encounter Type Care Provider Facility Start: 11-01-2022 Telephone encounter Neurology Provid er Neurology Plan of Treatment Date Care Activity Detail Author Start: 12-07-2022 Influenza vaccination INFLUENZA (#1) [facility] Start: 09-18-2022 LIPID SCREEN LIPID SCREEN [facility] Start: 04-08-2022 DEPRESSION ASSESSMENT DEPRESSION ASS ESSMENT [facility] Start: 12-03-2016 End: 12-03-2016 Appointment Appointment [facility] Work Phone: Start: 12-03-2016 End: 12-03-2016 X-ray exam of finger(s) X-Ray, Fingers [facility] Work Phone: Start: 11-23-2016 End: 11-23-2016 Appointment Appointment [facility] Work Phone: Start: 11-23-2016 End: 11-23-2016 X-ray exam of finger(s) X-Ray, Fingers [facility] Work Phone: Start: 09-18-2006 Urine microalbumin profile DTAP,TDAP,TD (1 - Tdap) [facility] Start: 09-18-2005 HEPATITIS C SCREENING HEPATITIS C AL MARICRUZ [facility] Start: 03-20-1988 COVID-19 VACCINE (#1) COVID-19 VACCI NE (#1) [facility] Start: 1987 HEPATITIS B (1 of 3 - 3-dose series) HEPATITIS B (1 of 3 - 3-dose series) [facility] Payers Date Payer Category Payer Unknown [employer] BLUE CARD PPO OOS [id number] 2014-Present [phone] [address] [place] [address] PPO [id number] Social History Date Type Detail Facility Start: 07-29-2015 Tobacco smoking stat us NHIS Smokes tobacco daily [facility] History of tobacco use Cigarette Smoker [facility] Start: 07-29-2015 Tobacco use and exposure Forme r smokeless tobacco user [facility] End: 01-14-2015 History of tobacco use Chews Tobacco [facility] Start: 11-23-2021 Alcohol intake 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 Spoke with the patient, and he doesn't need the appointment. The patient got an appointment with a provider outside of [facility]. The patient is being seen for R90.89 abnormal findings on diagnostic imaging of the central nervous system. The diagnosis doesn't pull the provider. Sent a message to PA to see if willing to see the patient. Referral received in Dr. Dahl's [place] office for patient to be seen d/t an abnormal brain MRI. Patient having neck pain that radiates and causes headache. Referral, MRI Brain, Lab work and OV note scanned into patient chart. Of note, Juany Edwards PA-C has availability much sooner than Dr. Dahl. Routing this TE to ОЛЬГА Cartwright for scheduling. MILTON Chong documented in this encounter [facility] Summary Purpose Family History No Family History Records Found Advance Directives No Advanced Directives Records Found Additional Source Comments Source Comments (unrecognize d section and content) In the event this informatio n is protected by the Federal Confidentiality of Alcohol and Drug Abuse Patient Records regulations: The Federal rules restrict any use of the information to criminally investigate or prosecute any alcohol or drug abuse patient.[facility] Reason for Visit (unrecogniz ed section and content) (unrecognized sect ion and content) No Status Records Found INFORMATION SOURCE (unrecogn ized section and content) FOR RECORDS PERTAINING TO PATIENTS WHO ARE OR HAVE BEEN ENROLLED IN A CHEMICAL DEPENDENCY/SUBSTANCEABUSE PROGRAM, SOME INFORMATION MAY BE OMITTED. This clinical summary was aggregated from multiple sources. Caution should be exercised in using it in the provision of clinical care. This summary normalizes information from multiple sources, and as a consequence, information in this document may materially change the coding, format and clinical context of patient data. In addition, data may be omitted in some cases. CLINICAL DECISIONS SHOULD BE BASED ON THE PRIMARY CLINICAL RECORDS. [employer] provides no warranty or guarantee of the accuracy or completeness of information in this document.
== END | disposition home or self-care (01) ==
LOC: MRI 06:36
PROVIDERS: PCP Family Medicine; Referring Provider Psychiatry & Neurology Neurology; Visit Provider Psychiatry & Neurology Neurology
DX: R51.9 Headache, unspecified (principal); R93.0 Abnormal findings on diagnostic imaging of skull and head, not elsewhere classified; R42 Dizziness and giddiness
CPT/HCPCS: 70553; A9575

== ENCOUNTER → 2023-12-06 | Outpatient (CLI) | payer BC, SELFPAY ==
--- NOTE | 2023-12-06 15:20 | RAD_ITS ---
EXAM: XR CHEST, 2 VIEWS CLINICAL INDICATION: CHEST PAIN TECHNIQUE: Frontal and lateral views of the chest. COMPARISON: 02/14/2018 FINDINGS: LUNGS AND PLEURAL SPACES: Unremarkable. No consolidation or edema. No pneumothorax. No effusion. HEART: Unremarkable. Cardiac silhouette not enlarged. MEDIASTINUM: Central airways and mediastinal contour are unremarkable. BONES/JOINTS: Unremarkable. No acute fracture. SOFT TISSUES: Unremarkable. RAD/Chest PA and Lateral IMPRESSION: No radiographic evidence of acute cardiopulmonary disease. Electronically Signed: Carson Degroot MD at 0:12 EDT ,
== END | disposition home or self-care (01) ==
LOC: MTRAD 15:02
PROVIDERS: PCP Family Medicine; Referring Provider Family Medicine; Visit Provider Family Medicine
DX: M94.0 Chondrocostal junction syndrome [Tietze] (principal); F17.200 Nicotine dependence, unspecified, uncomplicated; R07.9 Chest pain, unspecified
CPT/HCPCS: 71046

== ENCOUNTER → 2024-11-03 | Outpatient (CLI) | payer BC, SELFPAY ==
[2024-11-03 13:37] LABS: AST(SGOT) 21 U/L (<=37); Alanine Aminotransfer ALT/SGPT 23 U/L (<=46); Albumin, Serum 4.5 g/dL (3.5-5.0); Alkaline Phosphatase 82 U/L (40-129); Anion Gap 13 (5-15); BUN 12 mg/dL (4-19); BUN/Creat Ratio 12.9 RATIO (10-20); CRP < 3.00 mg/L (0.0-3.0); Calcium,Total 9.5 mg/dL (7.6-11.0); Carbon Dioxide 24.0 mmol/L (21.0-32.0); Chloride 102 mmol/L (98-108); Globulin 2.6 g/dL (2.2-4.2); Glucose 82 mg/dL (70-99); Potassium 3.8 mmol/L (3.3-5.1)
--- OUTSIDE RECORDS SUMMARY | 2024-11-03 21:56 | XMS RPT_ITS | CCD ---
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 Monocytes/100 WBC (Bld) 8.5 % 0-10 [facility] Blood platelet mean volumeOr dered By: Zaid Domingo on 10-24-2022 Platelet mean volume (Bld) [Entitic vol] 9.8 fL 6.2-12.0 [facility] Determination of erythrocyte mean corpuscular volume (MCV)Ordered By: Zaid Domingo on 10-24-2022 MCV (RBC) [Entitic vol] 91.6 fL 80-94 [facility] Erythrocyte sedimentation ra teOrdered By: Zaid Domingo on 10-24-2022 ESR (Bld) [Velocity] mm/h 0-20 [facility] Hematocrit Auto (Bld) [Volum e fraction]Ordered By: Zaid Domingo on 10-24-2022 Hematocrit (Bld) [Volume fraction] 46.8 % 40-54 [facility] Laboratory - Chemistry and C hemistry - challengeOrdered By: Zaid Domingo on 10-24-2022 ALP [Catalytic activity/Vol] 91 U/L 45-117 [facility] ALT [Catalytic activity/Vol] 26 U/L 16-61 [facility] CO2 [Moles/Vol] 30.0 mmol/L 21.0-32.0 [facility] Cobalamin (Vitamin B12) [Mass/Vol] 429 pg/mL 211-911 [facility] Globulin (S) [Mass/Vol] 3.3 g/dL 2.2-4.2 [facility] Urea nitrogen/Creatinine [Mass ratio] 11.1 mg/mg 10-20 [facility] Laboratory - Hematology and Cell countsOrdered By: Zaid Domingo on 10-24-2022 Erythrocyte distribution width (RBC) [Entitic vol] 40.0 fL 35.1-43.9 [facility] Erythrocyte distribution width (RBC) [Ratio] 11.9 % 11.6-14.6 [facility] Immature granulocytes/100 WBC (Bld) 0.200 % 0.0-0.9 [facility] Comment on above: IG% - Immature Granu locytes (promyelocytes, myelocytes and metamyelocytes) > 1% indicates that a LEFT SHIFT is Present. MCH (RBC) [Entitic mass] 30.9 pg 27.0-32.0 [facility] Nucleated RBC/100 WBC (Bld) [Ratio] 0 % 0-5 [facility] MCHC Auto (RBC) [Mass/Vol]Or dered By: Zaid Domingo on 10-24-2022 MCHC (RBC) [Mass/Vol] 33.8 g/dL 32-36 [facility] No Panel InformationOrdered By: Zaid Domingo on 10-24-2022 Anti-Nuclear Antibody Screen Negative Negative [facility] Comment on above: Performed at: [facility] [employer] [facility] [employer] [id number] Director: Jesus Trujillo PhD, Phone: [phone] [facility] Antibody Not Reportable [facility] Estimated GFR (MDRD) Amer 111 mL/min >60 [facility] Comment on above: GFR Calc Estimated GFR (MDRD) Non-Af Amer 92 mL/min >60 [facility] Comment on above: Non- GFR Calc [employer]WARD[employer] Antibody Not Reportable [facility] Thyroid Stimulating Hormone (TSH) 0.76 uIU/mL 0.358-3.74 [facility] Platelets bldOrdered By: Cristina Domingo on 10-24-2022 Platelets (Bld) [#/Vol] 303 10*3/uL 150-450 [facility] Serum DNA double strand anti body assay (units/volume)Ordered By: Zaid Domingo on 10-24-2022 DNA double strand Ab Qn (S) Not Reportable [facility] Serum Anna-1 antibody assay (u nits/volume)Ordered By: Zaid Domingo on 10-24-2022 Anna-1 extractable nuclear Ab Qn (S) Not Reportable [facility] Serum Scl-70 extractable nuc lear antibody assay (units/volume)Ordered By: Zaid Domingo on 10-24-2022 SCL-70 extractable nuclear Ab Qn (S) Not Reportable [facility] Serum Cuellar extractable nucl ear antibody detectionOrdered By: Zaid Domingo on 10-24-2022 Cuellar extractable nuclear Ab Ql (S) Not Reportable [facility] Serum cyclic citrullinated p eptide IgG antibody assay (units/volume)Ordered By: Zaid Domingo on 10-24-2022 Cyclic citrullinated peptide IgG Qn 4 units 0-19 [facility] Comment on above: Negative <20 Weak po sitive 20 - 39 Moderate positive 40 - 59 Strong positive >59Performed at: [facility] Director: Jesus Trujillo PhD, Phone: [phone] Serum or plasma C reactive p rotein measurement (mass/volume)Ordered By: Zaid Domingo on 10-24-2022 CRP [Mass/Vol] mg/L 0.0-3.0 [facility] Comment on above: C-Reactive Protein ( CRP) provides useful information for thediagnosis, therapy and monitoring of inflammatory processesand associated diseases. For the evaluation of Relative Riskfor Cardiovascular Disease, a High Sensitivity CRP (HSCRP)should be ordered. Serum or plasma albumin connie urement (mass/volume)Ordered By: Zaid Domingo on 10-24-2022 Albumin [Mass/Vol] 4.1 g/dL 3.2-5.0 [facility] Serum or plasma albumin/glob ulin mass ratioOrdered By: Zaid Domingo on 10-24-2022 Albumin/Globulin [Mass ratio] 1.2 {ratio} 0.9-2.4 [facility] Serum or plasma calcium connie urement (mass/volume)Ordered By: Zaid Domingo on 10-24-2022 Calcium [Mass/Vol] 8.9 mg/dL 8.5-10.1 [facility] Serum or plasma creatinine m easurement (mass/volume)Ordered By: Zaid Domingo on 10-24-2022 Creatinine [Mass/Vol] 0.99 mg/dL 0.70-1.30 [facility] Comment on above: The validity of the calculated GFR & GFRAA in patients over 70 years has not been determined. Clinical correlation is essential. Serum or plasma urea nitroge n measurement (mass/volume)Ordered By: Zaid Domingo on 10-24-2022 Urea nitrogen [Mass/Vol] 11 mg/dL 7-18 [facility] Serum rheumatoid factor dete ctionOrdered By: Zaid Domingo on 10-24-2022 Rheumatoid factor Ql (S) < 10.0 IU/mL <15 [facility] Thin prep Papanicolaou smear with manual screeningOrdered By: Zaid Domingo on 10-24-2022 Thin prep Papanicolaou smear with manual screening 17 U/L 15-37 [facility] Thin prep Papanicolaou smear with manual screening 4 5-15 [facility] No Panel InformationOrdered By: Zaid Domingo on 08-02-2022 Lead < 1.0 ug/dL 0.0-3.4 [facility] Comment on above: Testing performed by Inductively coupled plasma/MassSpectrometry.Analysis by inductively coupled plasma/massspectrometry (ICP/MS) Environmental Exposure: WHO Recommendation <20.0 Occupational Exposure: OSHA Lead Std 40.0 [place] 30.0 Detection Limit = 1.0Performed at: [employer] [id number] Director: Jesus Trujillo PhD, Phone: [phone] Office Visit: Occ med f/u L middle finger fractureon 12-03-2016 Documentation of current medications (procedure) Done Invalid Interpretation Code [facility] Work Phone: Fall risk assessment No Invalid Interpretation Code [facility] Work Phone: Tobacco use HS Current every day smoker Invalid Interpretation Code [facility] Work Phone: Office Visit: [facility]: L 3rd dig it tuft fractureon 11-23-2016 Documentation of current medications (procedure) Done Invalid Interpretation Code [facility] Work Phone: Fall risk assessment No Invalid Interpretation Code [facility] Work Phone: Smoking cessation education (procedure) Smoking cessation education (procedure) Invalid Interpretation Code [facility] Work Phone: Tobacco use HS Current every day smoker Invalid Interpretation Code [facility] Work Phone: Vital Signs Date Time Vital Sign Value Performing Clinician Faci lity 03-11-2023 15:20-0500 Body height 167.[address] Zaid Domingo Work Phone: [facility] 03-11-2023 15:20-0500 Body mass index (BMI) [Ratio] 28.6 kg/m2 Dr. Zaid Domingo Work Phone: [facility] 03-11-2023 15:20-0500 Body temperature 98.7 [degF] Dr. Zaid Domingo Work Phone: [facility] 03-11-2023 15:20-0500 Body weight 80.[address] Zaid Domingo Work Phone: [facility] 03-11-2023 15:20-0500 Diastolic blood pressure 78 mm[Hg] Dr. Zaid Domingo Work Phone: [facility] 03-11-2023 15:20-0500 Heart rate 82 /min Dr. Zaid Domingo Work Phone: [facility] 03-11-2023 15:20-0500 Respiratory rate 17 /min Dr. Zaid Domingo Work Phone: [facility] 03-11-2023 15:20-0500 SaO2% (BldA) [Mass fraction] 98 % Dr. Zaid Domingo Work Phone: [facility] 03-11-2023 15:20-0500 Systolic blood pressure 110 mm[Hg] Dr. Zaid Domingo Work Phone: [facility] 12-03-2016 15:59-0400 BMI (Body Mass Index) 25.72 kg/m2 [facility] Work Phone: 12-03-2016 15:59-0400 Body Temperature 98.1 [degF] [facility] Work Phone: 12-03-2016 15:59-0400 BP Diastolic 64 mm[Hg] [facility] Work Phone: 12-03-2016 15:59-0400 BP Systolic 110 mm[Hg] [facility] Work Phone: 12-03-2016 15:59-0400 Height 172.72 cm [facility] Work Phone: 12-03-2016 15:59-0400 Pulse (Heart Rate) 96 /min [facility] Work Phone: 12-03-2016 15:59-0400 Respiratory Rate 13 /min [facility] Work Phone: 12-03-2016 15:59-0400 Weight 76.75 kg [facility] Work Phone: 11-23-2016 15:00-0400 BMI (Body Mass Index) 25.66 kg/m2 Kaya Peña LPN [facility] Work Phone: 11-23-2016 15:00-0400 Body Temperature 98 [degF] Kaya Peña LPN [facility] Work Phone: 11-23-2016 15:00-0400 BP Diastolic 62 mm[Hg] Kaya Peña LPN [facility] Work Phone: 11-23-2016 15:00-0400 BP Systolic 104 mm[Hg] Kaya ePña LPN [facility] Work Phone: 11-23-2016 15:00-0400 Height 172.72 cm Kaya Peña LPN [facility] Work Phone: 11-23-2016 15:00-0400 Pulse (Heart Rate) 68 /min Kaya Peña LPN [facility] Work Phone: 11-23-2016 15:00-0400 Respiratory Rate 14 /min Kaya Peña LPN [facility] Work Phone: 11-23-2016 15:00-0400 Weight 76.57 kg Kaya Peña LPN [facility] Work Phone: Encounters Encounter Date Encounter Type Care Provider Facility Start: 12-06-2023 End: 12-06-2023 ambulatory Zaid Jose L Facility:[facility] Start: 07-15-2023 End: 07-15-2023 ambulatory [facility] Facility:[facility] Start: 05-30-2023 End: 05-30-2023 ambulatory [facility] Facility:[facility] Start: 03-11-2023 End: 03-11-[address] Zaid Domingo Work Phone: [facility] Work Phone: Start: 03-11-2023 End: 03-11-2023 ambulatory [facility] Facility:[facility] Start: 03-08-2023 End: 03-08-[address] Zaid Domingo Work Phone: [facility] Work Phone: Start: 03-08-2023 End: 03-08-[address] Zaid Domingo Work Phone: [facility] Work Phone: Start: 03-08-2023 End: 03-08-2023 ambulatory Zaid Domingo Facility:[facility] Start: 11-01-2022 Telephone encounter Neurology Provid er Neurology Comment on above: Consult Start: 10-30-2022 End: 10-30-2022 ambulatory [facility] Work Phone: Start: 10-30-2022 End: 10-30-2022 Patient encounter procedure [facility]-MRI - [facility] Work Phone: Start: 10-27-2022 End: 10-27-2022 ambulatory [facility] Work Phone: Start: 10-27-2022 End: 10-27-2022 Patient encounter procedure [facility]-Ultrasound, [facility] Work Phone: Start: 10-24-2022 End: 10-24-2022 Patient encounter procedure [facility]-Laboratory, [facility] Start: 08-02-2022 End: 08-02-2022 Patient encounter procedure [facility] Procedures Date Procedure Procedure Detail Performing Clinician Start: 10-30-2022 MRI of brain with contrast Start: 10-27-2022 Ultrasonography of t hyroid and parathyroid Plan of Treatment Date Care Activity Detail Author Start: 03-08-2023 Borrelia burgdorferi blot test [facility] Start: 12-07-2022 Influenza vaccination INFLUENZA (#1) [facility] Start: 09-18-2022 LIPID SCREEN LIPID SCREEN [facility] Start: 04-08-2022 DEPRESSION ASSESSMENT DEPRESSION ASSESSMENT [facility] Start: 12-03-2016 End: 12-03-2016 Appointment Appointment [facility] Work Phone: Start: 12-03-2016 End: 12-03-2016 X-ray exam of finger(s) X-Ray, Fingers [facility] Work Phone: Start: 11-23-2016 End: 11-23-2016 Appointment Appointment [facility] Work Phone: Start: 11-23-2016 End: 11-23-2016 X-ray exam of finger(s) X-Ray, Fingers [facility] Work Phone: Start: 09-18-2006 Urine microalbumin profile DTAP,TDAP,TD (1 - Tdap) [facility] Start: 09-18-2005 HEPATITIS C SCREENING HEPATITIS C SCREENING [facility] Start: 03-20-1988 COVID-19 VACCINE (#1) COVID-19 VACCINE (#1) [facility] Start: 1987 HEPATITIS B (1 of 3 - 3-dose series) HEPATITIS B (1 of 3 - 3-dose series) [facility] Laboratory data interpretation [facility] MR Brain WO and W co ntrast IV [facility] Payers Date Payer Category Payer Self-pay [id number] 2022 Unknown [id number] 2016 Unknown [id number] 2014 Unknown [employer] BLUE CARD PPO OOS [id number] 2014-Present [phone] [facility] [id number] [place] [address] PPO [id number] Unknown [id number] Unknown [id number] Unknown [id number] Unknown [id number] Unknown [id number] Social History Date Type Detail Facility Start: 03-13-2019 End: 03-11-2023 Tobacco smoking status NHIS Unknown if ever smoked [facility] Start: 1985 Sex Assigned At Male [facility] Start: 07-29-2015 Tobacco smoking stat us NHIS Smokes tobacco daily [facility] Start: 07-29-2015 Tobacco use and exposure Former smokeless tobacco user [facility] End: 01-14-2015 History of tobacco use Chews Tobacco [facility] Start: 11-23-2021 Alcohol intake 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 The patient is being seen for R90.89 abnormal findings on diagnostic imaging of the central nervous system. The diagnosis doesn't pull the provider. Sent a message to [facility] to see if willing to see the patient. Referral received in Dr. Dahl's [place] office for patient to be seen d/t an abnormal brain MRI. Patient having neck pain that radiates and causes headache. Referral, MRI Brain, Lab work and OV note scanned into patient chart. Of note, Juany Edwards PA-C has availability much sooner than Dr. Dahl. Routing this TE to ОЛЬГА Cartwright for scheduling. MILTON Chong documented in this encounter [facility] Evaluation note Note Date & Type Note Facility Evaluation note No assessment information availa [facility] Work Phone: Evaluation note Note Date & Type Note Facility Evaluation note Diagnosis Onset Date Fatigue noneactive [facility] Work Phone: Chief Complaint and Reason for Visit Chief Complaint RIGHT SIDED NECK JAYRO N Unspecified visual disturbance Chief Complaint 4 M FU Reason for Visit Fatigue Family History No Family History Records Found Relationship Condition Age at Onset Recorded Date/T avelina grandfather Malignant neoplasm Unknown Cardiac disease Unknown Cerebrovascular accident (CVA) Unknown grandmother Cerebrovascular accident (CVA) Unknown Advance Directives No Advanced Directives Records Found Advance Directive Response Recorded Date/ Time Living Will No November 16 5:34pm Power of Dock Operator No November 16, 2 017 5:34pm Advance Directive Response Recorded Date/ Time Living Will No November 16 4:34pm Power of Dock Operator No November 16 017 4:34pm Summary Purpose Additional Source Comments Care Teams (unrecognized sec tion and content) Team Status: Active Member Role Status Dates Dr. Zaid Domingo DO Family Provider Active Dr. Zaid Domingo DO Primary Care Provider Active Team Status: Inactive Member Role Status Dates Dr. Zaid Domingo , DO Primary Care Prov ider, Attending Provider, Referring Provider Active Team Status: Active Member Role Status Dates Dr. Zaid Domingo , DO Primary Care Prov ider, Attending Provider, Referring Provider Active Team Status: Inactive Member Role Status Dates Dr. Zaid Domingo , Primary Care Provider, Referrin g Provider Active Dr. Beto Peguero MD Attending Provider Active Goals (unrecognized section and content) Goals may be documented in a n alternate sectionGoals may be documented in an alternate sectionGoals may be documented in an alternate section Source Comments (unrecognize d section and content) In the event this informatio n is protected by the Federal Confidentiality of Alcohol and Drug Abuse Patient Records regulations: The Federal rules restrict any use of the information to criminally investigate or prosecute any alcohol or drug abuse patient.[facility] Reason for Visit (unrecogniz ed section and content) Reason Comments Consult (unrecognized sect ion and content) No Status Records FoundNo Status Records Found INFORMATION SOURCE (unrecogn ized section and content) DATE CREATED AUTHOR 11/21/2022 [facility] DATE CREATED AUTHOR AUTHOR'S PORFIRIO ATION 12/18/2023 [facility] FOR RECORDS PERTAINING TO PATIENTS WHO ARE [...] BE BASED ON THE PRIMARY CLINICAL RECORDS. [facility]. provides no warranty or guarantee of the accuracy or completeness of information in this document.
[2024-11-04 07:30] LABS: Hematocrit 44.0 % (40-54); Hemoglobin 15.2 g/dL (13.0-16.5); Immature Granulocytes Count 0.020 X10^3/uL (0.0-0.0); Mean Corp Hgb Conc 34.5 g/dL (32-36); Mean Corpuscular Volume 89.1 fL (80-94); Mean Platelet Vol. 9.8 fl (6.2-12.0); NRBC Flagged by Analyzer 0.4 % (0-5); Platelet Count 290 K/mm3 (150-450); RBC Distribution Width CV 11.5 % (11.6-14.6); RBC Distribution Width SD 37.0 fl (35.1-43.9); Red Blood Count 4.94 M/mm3 (4.6-6.2); White Blood Count 5.5 K/mm3 (4.4-11.0)
== END | disposition home or self-care (01) ==
LOC: BFHLAB 10:59
PROVIDERS: PCP Family Medicine; Visit Provider Family Medicine
DX: R06.00 Dyspnea, unspecified (principal); R07.9 Chest pain, unspecified; R53.83 Other fatigue
CPT/HCPCS: 36415; 80053; 84443; 85025; 85652; 86140